=== PATIENT | female | born 1985 | race Caucasian/White ===

== ENCOUNTER 2025-06-03 18:08 | Emergency (ER) | payer OTHER, MEDICAID ==
[~2025-06-03] VITALS: Ht 172.7 cm; Wt 60.0 kg
[2025-06-03 18:19] VITALS: O2SAT 96
[2025-06-03 18:24] VITALS: BP 101/84; PULSE 117; RESP 18; TEMP 36.8; O2SAT 100
== END 2025-06-03 18:49 | disposition left against medical advice (07) ==
LOC: ER 18:08
DX: N39.0 Urinary tract infection, site not specified (principal); Z53.21 Procedure and treatment not carried out due to patient leaving prior to being seen by health care provider
CPT/HCPCS: 99281